=== PATIENT | male | born 1955 | race Hispanic/Latino ===

== ENCOUNTER 2017-03-01 12:02 | Day surgery (SDC) | payer OTHER ==
[2017-03-01 13:23] LABS: Hematocrit 46.4 % (35.5-45.6); Hemoglobin 16.2 gm/dl (11.8-15.2); Mean Corpuscular HGB Conc 35 % (32-34); Mean Corpuscular Hemoglobin 31 pg (28-32); Mean Corpuscular Volume 90 fl (84-94); Platelet Count 237 K/mm3 (140-440); Red Blood Count 5.19 M/mm3 (3.65-5.03); Red Cell Distribution Width 13.3 % (13.2-15.2); White Blood Count 6.8 K/mm3 (4.5-11.0)
[2017-03-01] MEDS ORDERED: NACL 0.9% 1,000 ML, VANCOMYCIN VIAL 1,000 MG IR ONE (13:30)
[2017-03-01 13:35] LABS: Anion Gap 18 mmol/L; BUN/Creatinine Ratio 21.42; Blood Urea Nitrogen 15 mg/dL (9-20); Calcium 9.3 mg/dL (8.4-10.2); Carbon Dioxide 23 mmol/L (22-30); Chloride 102.8 mmol/L (98-107); Glucose 97 mg/dL (75-100); Potassium 4.3 mmol/L (3.6-5.0); Sodium 139 mmol/L (137-145)
[2017-03-01 13:59] LABS: INR 0.99 (0.87-1.13); Partial Thromboplastin Time 28.8 Sec. (24.2-36.6)
[2017-03-01] MEDS ORDERED: NACL 0.45% 1000 ML 1,000 ML IV SCH (14:00)
[2017-03-01 14:55] LABS: Basophils % (Manual) 0 % (0.0-1.8); Blastocytes % (Manual) 0 %
[2017-03-01 14:56] LABS: Diff Status Complete; RBC Morphology Normal
[2017-03-01] MEDS ORDERED: ANCEF/STERILE WATER 2 GM/20 ML 2 GM/20 ML SYRINGE IV ONE (15:24)
[2017-03-01] MEDS ORDERED: XYLOCAINE 1% 20 mL ONE ×2 (15:24→15:30)
[2017-03-01] MEDS ORDERED: NACL 0.9% 500 ML IR ONE ×2 (15:24→15:29)
[2017-03-01] MEDS ORDERED: VASOTEC IV ONE (15:26)
[2017-03-01] MEDS ORDERED: MARCAINE 0.5% 30 ML INFILTRATI ONE ×2 (15:26→15:30)
[2017-03-01] MEDS: SUBLIMAZE ONE ×3 (15:30→15:42)
[2017-03-01] MEDS: VERSED ONE ×2 (15:30→15:32)
[2017-03-01 17:37] VITALS: BP 126/62
== END 2017-03-01 17:50 | disposition home or self-care (01) ==
LOC: CATHLABREC 12:02
PROVIDERS: ATTEND Internal Medicine Cardiovascular Disease
DX: Z45.010 Encounter for checking and testing of cardiac pacemaker pulse generator [battery] (principal); I49.5 Sick sinus syndrome
CPT/HCPCS: 33228; 36415; 80048; 85007; 85025; 85610; 85730; 93005; 93010; C1785; J0690; J2250; J3010; J3370

== ENCOUNTER 2017-06-08 08:59 | Outpatient (CLI) | payer OTHER ==
--- NOTE | 2017-06-08 11:02 | Ultrasound Report ---
Ultrasound extremity nonvascular limited, left: History: Localize swelling, mass, lump on left lower limb Findings: Targeted grayscale ultrasound was performed at the level of the left knee. In the posterior soft tissues, a popliteal cyst is identified measuring 4.0 cm x 1.5 cm. In the anterior subcutaneous tissues, there is a slightly nodular and prominent area measuring up to 1 cm which resembles fat on ultrasound. This may represent a small lipoma. Impression: Popliteal cyst. Possible small uncomplicated lipoma in the anterior subcutaneous tissues.
== END 2017-06-08 09:00 | disposition home or self-care (01) ==
LOC: US 08:59
PROVIDERS: ATTEND Internal Medicine
DX: M71.22 Synovial cyst of popliteal space [Baker], left knee (principal); E78.00 Pure hypercholesterolemia, unspecified; F32.9 Major depressive disorder, single episode, unspecified